=== PATIENT | female | born 1985 | race African-American/Black ===

== ENCOUNTER → 2016-12-24 | Outpatient (CLI) | payer OTHER ==
[2016-12-28 15:20] LABS: HEPATITIS BE ANTIBODY TC 556 Reactive; LIVER FIBR APOLIPOPROTEIN A-1 133 mg/dL (101-198); LIVER FIBROS ALPHA-2-MACROGLOB 191 mg/dL (106-279); LIVER FIBROSIS GGT 20 U/L (3-40); NECROINFLAMMATION ACT GRADE A0; NECROINFLAMMATION ACT SCORE 0.03
== END | disposition home or self-care (01) ==
LOC: C.LAB1850 14:19
PROVIDERS: ATTEND Internal Medicine Infectious Disease
DX: B18.1 Chronic viral hepatitis B without delta-agent (principal)

== ENCOUNTER → 2017-02-20 | Outpatient (CLI) | payer OTHER | END | disposition home or self-care (01) | LOC: C.PAPS 15:21 | PROVIDERS: ATTEND Obstetrics & Gynecology | DX: Z12.4 Encounter for screening for malignant neoplasm of cervix (principal); R87.612 Low grade squamous intraepithelial lesion on cytologic smear of cervix (LGSIL) ==

== ENCOUNTER → 2017-02-20 | Outpatient (CLI) | payer OTHER | END | disposition home or self-care (01) | LOC: C.LABSPEC 13:50 | PROVIDERS: ATTEND Obstetrics & Gynecology | DX: R10.2 Pelvic and perineal pain (principal) ==